=== PATIENT | female | born 1965 | race Caucasian/White ===

== ENCOUNTER 2023-07-01 20:49 | Emergency (ER) | payer SELFPAY ==
[2023-07-01] MEDS ORDERED: fentaNYL 50 mcg/mL 1 mL Vial ONE (21:26)
[2023-07-01] MEDS ORDERED: Lidocaine 1% PF 5 ML VIAL ONE (21:27)
== END 2023-07-02 00:38 | disposition home or self-care (01) ==
LOC: ERS 20:49
DX: S02.2XXA Fracture of nasal bones, initial encounter for closed fracture (principal); S01.511A Laceration without foreign body of lip, initial encounter; W18.2XXA Fall in (into) shower or empty bathtub, initial encounter; Y93.E1 Activity, personal bathing and showering
CPT/HCPCS: 12011; 70450; 70486; 72125; 96374; J3010